=== PATIENT | female | born 1965 | race Native Hawaiian/Other Pacific Islander ===

== ENCOUNTER 2019-05-10 12:24 | Outpatient (CLI) | payer BC ==
[2019-05-10 13:09] LABS: POTASSIUM 4.1 mmol/L (3.6-5.2)
== END 2019-05-10 22:36 | disposition home or self-care (01) ==
LOC: LABW 12:24
PROVIDERS: Internal Medicine
DX: R06.02 Shortness of breath (principal); R07.89 Other chest pain
CPT/HCPCS: 36415; 80053; 80061; 83880; 84443; 85379

== ENCOUNTER 2019-05-16 08:47 | Outpatient (CLI) | payer BC | END 2019-05-16 20:40 | disposition home or self-care (01) | LOC: CT 08:47 | DX: R06.02 Shortness of breath (principal) | CPT/HCPCS: Q9963 ==

== ENCOUNTER 2019-08-07 10:07 | Outpatient (CLI) | payer BC | END 2019-08-07 20:21 | disposition home or self-care (01) | LOC: RAD 10:07 | DX: M54.5 Low back pain (principal) ==

== ENCOUNTER 2019-08-26 10:56 | Outpatient (CLI) | payer BC | END 2019-08-26 21:36 | disposition home or self-care (01) | LOC: MAMMO 10:56 | DX: Z13.820 Encounter for screening for osteoporosis (principal); Z12.31 Encounter for screening mammogram for malignant neoplasm of breast ==

== ENCOUNTER 2020-05-29 08:32 | Outpatient (CLI) | payer BC | END 2020-05-29 19:27 | disposition home or self-care (01) | LOC: MRI 08:32 | PROVIDERS: ATTEND Specialist | DX: R20.2 Paresthesia of skin (principal); R20.0 Anesthesia of skin; R55 Syncope and collapse ==

== ENCOUNTER 2021-02-01 09:25 | Outpatient (CLI) | payer BC | END 2021-02-01 20:56 | disposition home or self-care (01) | LOC: CT 09:25 | PROVIDERS: ATTEND Internal Medicine | DX: R10.11 Right upper quadrant pain (principal) | CPT/HCPCS: 36415; 82565; 84520; Q9963 ==

== ENCOUNTER 2021-02-02 10:18 | Outpatient (CLI) | payer BC | END 2021-02-02 20:37 | disposition home or self-care (01) | LOC: MAMMO 10:18 | PROVIDERS: ATTEND Internal Medicine | DX: Z12.31 Encounter for screening mammogram for malignant neoplasm of breast (principal) ==

== ENCOUNTER 2022-12-29 08:15 | Outpatient (CLI) | payer BC | END 2022-12-29 18:58 | disposition home or self-care (01) | LOC: RAD 08:15 | PROVIDERS: ATTEND Internal Medicine | DX: Z12.31 Encounter for screening mammogram for malignant neoplasm of breast (principal); Z78.0 Asymptomatic menopausal state ==

== ENCOUNTER 2023-01-06 08:46 | Outpatient (CLI) | payer BC | END 2023-01-06 19:09 | disposition home or self-care (01) | LOC: CT 08:46 | PROVIDERS: ATTEND Internal Medicine | DX: R10.11 Right upper quadrant pain (principal) | CPT/HCPCS: 36415; 82565; 84520; Q9963 ==